=== PATIENT | male | born 1990 | race Caucasian/White ===

== ENCOUNTER 2017-09-20 09:08 | Outpatient (CLI) | payer OTHER | END 2017-09-20 09:09 | disposition home or self-care (01) | LOC: SC 09:08 | PROVIDERS: ATTEND Internal Medicine Pulmonary Disease | DX: G47.30 Sleep apnea, unspecified (principal); G47.10 Hypersomnia, unspecified; R06.83 Snoring; G47.8 Other sleep disorders | CPT/HCPCS: 99203; 99212 ==

== ENCOUNTER 2017-09-26 19:56 | Outpatient (CLI) | payer OTHER | END 2017-09-26 19:57 | disposition home or self-care (01) | LOC: SC 19:56 | PROVIDERS: ATTEND Internal Medicine Pulmonary Disease | DX: G47.30 Sleep apnea, unspecified (principal); R06.83 Snoring | CPT/HCPCS: 95810 ==

== ENCOUNTER 2017-09-28 11:02 | Outpatient (CLI) | payer OTHER | END 2017-09-28 11:03 | disposition home or self-care (01) | LOC: SC 11:02 | PROVIDERS: ATTEND Nurse Practitioner Family | DX: R06.83 Snoring (principal) | CPT/HCPCS: 99212; 99213 ==

== ENCOUNTER 2021-04-14 07:05 | Outpatient (CLI) | payer OTHER ==
--- NOTE | 2021-04-14 10:21 | MRI Report ---
PROCEDURE: Ankle RT W/O INDICATIONS: PAIN IN RIGHT ANKLE TECHNIQUE: Noncontrast sagittal T1 spin echo and T2 fast spin echo with fat saturation, axial proton density fas t spin echo and T2 fast spin echo with fat saturation, coronal T1 spin echo and T2 fast spin echo wit h fat saturation through the ankle/hindfoot. COMPARISON: None. Findings: Bones: No evidence of fracture, infiltration, ischemia or contusion. MUSCLES: No evidence of muscular atrophy or edema. Anterior tibiofibular ligament: Intact. Posterior tibiofibular ligament: Intact. Calcaneofibular ligament: Intact. Talar dome: No significant abnormality. Anterior talofibular ligament: Intact. Posterior talofibular ligament: Intact. Deltoid ligament: Intact. Peroneal tendons: No evidence of tear or tenosynovitis. Tibialis posterior: No evidence of tear or tenosynovitis. Flexor digitorum: No evidence of tear or tenosynovitis. Flexor hallucis longus: No evidence of tear or tenosynovitis. Sinus Tarsi: No mass or fibrosis. Achilles tendon: Intact. Joint effusion: Small tibiotalar joint effusion. Plantar fascia: No evidence of tear or inflammation. T2 hyperintense signal is seen in the expected location of the cuneonavicular ligament (701/12). IMPRESSION: 1. Edema in the expected location of the cuneonavicular ligament, compatible with disruption. Reviewed by: Trav Mckeon MD on 04/14/2021 10:20 AM PDT Approved by: Trav Mckeon MD on 04/14/2021 10:20 AM PDT Station ID: [id number]
== END 2021-04-14 07:06 | disposition home or self-care (01) ==
LOC: DI 07:05
DX: M25.571 Pain in right ankle and joints of right foot (principal); R60.0 Localized edema